=== PATIENT | male | born 1970 | race Caucasian/White ===

== ENCOUNTER 2019-05-02 06:01 | Inpatient (IN) ==
--- NOTE | 2019-04-10 10:31 | Anesthesiology Consultation ---
Date of Service April 10, 2019 Assessment & Plan (1) Encounter for pre-operative examination: -No previous anesthesia/intubation records. Chart Review Chart Review: Acceptable Risk for Surgery and Patient seen in Pre Admission Testing Consults Requested none Teaching & Discussion Pre-Anesthesia Teaching/Discussion Notes: Instructed NPO after midnight before surgery, except medications with 15 cc of water. Medication instructions provided according to the PAT guidelines. History Surgery Operation Date: 05/02/19 07:30 Proposed Procedures p Robotic Assisted Laparoscopic Prostatectomy (Retropubic), Possible Open, Possible Pelvic Lymph Node Dissection, Possible Suprapubic Tube Placement - Edison Willson MD Height/Weight Height: 5 ft 8 in Weight: 79.4 kg Allergies Allergy/AdvReac Type Severity Reaction Status Date / Time No Known Allergies Allergy Verified 04/04/19 11:15 Medications Home Medications Medication Instructions Recorded Confirmed Last Taken uorgbytb-ney-ypqzl-vit K-lycop 1 tab PO DAILY 04/04/19 04/04/19 Unknown [Men's Multivitamin] omega 8-nqg-fbe-fish oil [Fish Oil] 1 cap PO DAILY 04/04/19 04/04/19 Unknown Past Medical History Medical History Cancer PROSTATE CANCER (NEW DX) Deviated septum GERD (gastroesophageal reflux disease) Hyperlipidemia BORDERLINE ELEVATION Exercise / Class Metabolic Activity II 4-5 Yardwork/Stairs/Walk up hill (Yardwork, class 1 owner operator, Able to climb FOS. Denies CP or SOB. ) Past Family History Family History Grandmother (Maternal) Family history of diabetes mellitus Past Surgical History Surgical History Family history of reaction to anesthesia MOTHER-PONV H/O eye surgery RT/LEFT EYE SURGERY (LENS INSERTED) H/O prostate biopsy History of tooth extraction Ina Teeth Past Anesthesia History No Hx of Anesthesia Complications and No Family Hx of Anesthesia Complications History of PONV No Hx of PONV Social History Smoking Status: Never smoker Do You Dip or Chew Tobacco: No Hx Alcohol Use: Yes Alcohol type: beer alcohol intake frequency: a few times a month Hx Substance Use: No substance use type: does not use Review of Systems Patient denies chest pain, shortness of breath, dyspnea on exertion, reflux, cough, wheezing, palpitations. +Joint Pain (lower back occasionally) Physical Exam Vital Signs BP: 121/83 P: 66 R: 16 T: 98.3 SPO2: 97% on RA ENMT Thyromental Distance: > or= 3.5 Finger Breadths (3.5) Mallampati Class: I Neck normal visual inspection, trachea midline and + facial hair (Advised); neck extension not limited Respiratory normal respiratory effort Auscultation: lungs clear to auscultation bilaterally Cardiovascular Rate/Rhythm: regular rate and regular rhythm Heart Sounds: no murmur Vessels: no carotid bruit Neurologic moves all extremities Psychiatric Orientation: alert and oriented x 3 Testing Laboratory Results 04/10/19 11:00 04/10/19 11:00 04/10/19 04/10/19 11:00 11:00 Urine Color Yellow Urine Appearance Clear Urine pH 5.0 Ur Specific [place] 1.017 Urine Protein Negative Urine Glucose (UA) Negative Urine Ketones Negative Urine Nitrite Negative Ur Leukocyte Esterase Negative Blood Type A Positive Antibody Screen NEGATIVE 04/10/19 11:00 Urine Culture - Final Urine,Clean Catch No growth - less than 1,000 colonies/mL. Electrocardiogram Date: 04/10/19 Findings: + SB @ (58) Chest X-Ray Date: 04/10/19 Findings: + NAD FINDINGS: The bones soft tissues and hemidiaphragms are normal. The cardiomediastinal silhouette is normal. The lungs are clear. The pulmonary vasculature is normal. IMPRESSION: Negative chest.
--- NOTE | 2019-04-10 10:33 | PAT Medication Instructions ---
Medication Instructions Date of Service April 10, 2019 Home Medications uobwxtci-fsn-wahki-vit K-lycop [Men's Multivitamin] 1 tab PO DAILY omega 3-ocw-ofr-fish oil [Fish Oil] 1 cap PO DAILY STOP taking 2 weeks before surgery omega 5-hhg-aqd-fish oil [Fish Oil] 1 cap PO DAILY DO NOT take the morning of surgery xkcmmqnt-big-mlxgs-vit K-lycop [Men's Multivitamin] 1 tab PO DAILY Take morning of surgery NOTHING TO EAT OR DRINK AFTER MIDNIGHT: Other Notes If you have any questions please call us at [phone] or [phone] or [phone] or [phone]
--- NOTE | 2019-04-10 11:41 | XRay Report ---
XR chest Pre-admission PA/Lat CLINICAL HISTORY: pat preoperative evaluation COMPARISON STUDY: No previous studies for comparison. FINDINGS: The bones soft tissues and hemidiaphragms are normal. The cardiomediastinal silhouette is n ormal. The lungs are clear. The pulmonary vasculature is normal. IMPRESSION: Negative chest. The above report was generated using voice recognition software. It may contain grammatical, syntax or spelling errors. Electronically signed by: Bogdan Bennett M.D. 04/10/2019 11:39 AM
[2019-04-10 11:44] LABS: Basophils # (auto) 0.03 K/uL (0-0.2); Basophils % (auto) 0.4 %; Eosinophils # (auto) 0.25 K/uL (0-0.5); Eosinophils % (auto) 3.5 %; Hematocrit (blood only) 48.1 % (42-52); Hemoglobin 16.8 g/dL (14.0-18.0); Immature Granulocytes # (auto) 0.01 K/uL (0.00-0.02); Immature Granulocytes % (auto) 0.1 %; Lymphocytes # (auto) 2.25 K/uL (1.2-3.4); Lymphocytes % (auto) 31.3 %; Mean Corpuscular Hgb Conc 34.9 g/dL (32-36); Mean Corpuscular Volume 88.4 fL (80-100); Mean Platelet Volume 11.1 fL (7.4-10.4); Neutrophils # (auto) 4.15 K/uL (1.4-6.5); Neutrophils % (auto) 57.7 %; Platelet Count 165 K/uL (130-400); RDW Coefficient of Variation 12.5 % (11.5-14.5); RDW Standard Deviation 39.9 fL (36.4-46.3); Red Blood Count 5.44 M/uL (4.7-6.1); White Blood Count 7.19 K/uL (4.8-10.8)
[2019-04-10 11:49] LABS: Appearance Urine Clear (Clear); Bilirubin Urine Negative (Negative); Blood Urine Negative (Negative); Color Urine Yellow; Glucose Urine UA Negative (Negative); Ketones Urine Negative (Negative); Leukocyte Esterase Urine Negative (Negative); Nitrite Urine Negative (Negative); Protein Urine Negative (Negative); Specific Gravity Urine 1.017 (1.000-1.030); Urobilinogen Urine Negative (Negative)
[2019-04-10 13:44] LABS: BUN Creatinine Ratio 12.5 (10-20); Calcium 8.9 mg/dl (8.5-10.1); Creatinine Clr Calc Pharmacy 81.4 ml/min; Est GFR (African American) 95.5; Est GFR (Non-African American) 82.4; Potassium 4.9 mmol/L (3.5-5.1)
[~2019-05-02 06:01] MED LIST: ACETAMINOPHEN 1000 MG/100 ML IV IV SCH; CEFAZOLIN 2000MG 2,000 MG/15 ML SYR IV SCH; HEPARIN SOD (PORCINE) 5,000 UNITS/ML VIAL SQ SCH; LR 15ML/HR IV SCH
--- OUTSIDE RECORDS SUMMARY | 2019-05-02 06:06 | External Medical Summary | Continuity of Care Document ---
:1970 Author Name Yehuda Roberts, Provider Address Unavailable Unavailable , Care Team Providers Name Role Phone Edison Willson M.D., I. Unavailable [email or web address] Unavailable Unavailable Unavailable Unavailable Unavailable Problems Prostate cancer (185) (C61) Elevated PSA (790.93) (R97.20) Allergies and Adverse Reactions No Known Drug Allergies (Allergy) Medications Aspirin 81 MG TABS Refills: 0 Fish Oil CAPS Refills: 0 Procedures History of Eye Surgery Status: Completed Immunizations Immunizations not documented Family History Mother No pertinent family history (V49.89) (Z78.9) Status: Active Father No pertinent family history (V49.89) (Z78.9) Status: Active Grandmother Family history of diabetes mellitus (V18.0) (Z83.3) Status: Active Grandfather Family history of cardiac disorder (V17.49) (Z82.49) Status: Active uncle Family history of lung cancer (V16.1) (Z80.1) Status: Active aunt Family history of ovarian cancer (V16.41) (Z80.41) Status: A ctive Family history of malignant neoplasm of breast (V16.3) (Z80. 3) Status: Active Social History - Smoking Status Never smoker Plan of Treatment Planned Encounters Appointment; Edison Willson M.D. Start: 03-Jun-2019 11:20 R equest Planned Observations Planned Goals not documented Results No Known Results Results not documented Encounters Appointment; Edison Willson M.D. 10-Apr-2019 9:10 Encounter Diagnosis: Problem not documented Appointment; Edison Willson M.D. 04-Feb-2019 10:45 Encounter Diagnosis: Problem not documented Appointment; Edison Willson M.D. 02-Jan-2019 13:20 Encounter Diagnosis: Problem not documented Appointment; Edison Willson M.D. 19-Dec-2018 9:00 Encounter Diagnosis: Problem not documented Appointment; Urology, US probe only 19-Dec-2018 9:00 Encounter Diagnosis: Problem not documented Appointment; Urology, Room 8 19-Dec-2018 8:50 Encounter Diagnosis: Problem not documented Appointment; Edison Willson M.D. 04-Dec-2018 9:40 Encounter Diagnosis: Problem not documented Appointment; Edison Willson M.D. 10-Oct-2018 16:30 Encounter Diagnosis: Problem not documented Appointment; Edison Willson M.D. 03-Jun-2019 11:20 Encounter Diagnosis: Problem not documented
[2019-05-02] MEDS ORDERED: MIDAZOLAM HCL 1 MG/ML 2ML VIAL ONE (06:23)
[2019-05-02] MEDS ORDERED: SUCCINYLCHOLINE CHLORIDE 20 MG/ML 10 ML VIAL ONE (06:23)
[2019-05-02] MEDS ORDERED: PHENYLEPHRINE HCL 10 MG/ML VIAL ONE (06:23)
[2019-05-02] MEDS ORDERED: DEXAMETHASONE SOD INJ 4 MG/ML VIAL ONE ×2 (06:23→08:06)
[2019-05-02] MEDS ORDERED: ePHEDrine sulfate 50 MG/ML AMP ONE (06:23)
[2019-05-02] MEDS ORDERED: GLYCOPYRROLATE 0.2 MG/ML VIAL ONE (06:23)
[2019-05-02] MEDS ORDERED: PROPOFOL IV EMULSION 10 MG/ML 20 ML VIAL IV ONE (06:23)
[2019-05-02] MEDS ORDERED: fentaNYL citrate 100 MCG/2 ML VIAL ONE (06:23)
[2019-05-02] MEDS ORDERED: LIDOCAINE HCL 2% 2 ML VIAL/AMP(20MG/ML) INFIL ONE (06:23)
[2019-05-02] MEDS ORDERED: NEOSTIGMINE METHYLSULFATE 5 MG/5 ML SYR ONE (06:23)
[2019-05-02] MEDS ORDERED: ONDANSETRON INJ 2 MG/ML 2 ML VIAL ONE ×2 (06:23→10:53)
[2019-05-02] MEDS ORDERED: SODIUM CHLORIDE 0.9% 250 ML IV PRN (06:26)
[2019-05-02] MEDS ORDERED: ONDANSETRON INJ 2 MG/ML 2 ML VIAL IV PRN ×3 (06:31→19:18)
[2019-05-02] MEDS ORDERED: ATROPINE SULFATE 0.1 MG/ML 10ML SYR IV PRN (06:31)
[2019-05-02] MEDS ORDERED: HYDROmorphone INJ 1 MG/ML SYRINGE IV PRN ×3 (06:31→13:08)
[2019-05-02] MEDS ORDERED: ePHEDrine sulfate 50 MG/ML AMP IV PRN (06:31)
[2019-05-02] MEDS ORDERED: HEPARIN SOD 5,000 UNIT/0.5 ML VIAL ONE (06:44)
[2019-05-02] MEDS ORDERED: BUPIVACAINE 0.5 % 5 MG/1 ML MPF 30ML VIAL ONE (06:56)
--- NOTE | 2019-05-02 07:02 | History & Physical Bridge Note ---
Date of Service May 02, 2019 History & Physical Bridge Note I have examined the patient, reviewed the History & Physical and in the interval since the performance of the History & Physical I have noted the following changes of clinical significance: no changes noted
[2019-05-02] MEDS ORDERED: HYDROmorphone INJ 2 MG/ML SYR/VIAL ONE (08:01)
[2019-05-02] MEDS ORDERED: ROCURONIUM BROMIDE 10 MG/ML 5 ML VIAL ONE (08:05)
[2019-05-02] MEDS ORDERED: raNITIdine HCl 25 MG/ML VIAL IV ONE (08:05)
[2019-05-02] MEDS ORDERED: METOCLOPRAMIDE HCL INJ 5 MG/ML 2 ML VIAL ONE (08:05)
[2019-05-02] MEDS ORDERED: CEFAZOLIN 2000MG 2,000 MG/15 ML SYR IV ONE (08:30)
[2019-05-02] MEDS ORDERED: PHENYLEPHRINE 100MCG/ML 5ML SYR ONE (09:23)
[2019-05-02] MEDS ORDERED: ePHEDrine sulfate 50 MG/ML SYR ONE (09:23)
[2019-05-02] MEDS ORDERED: FLOSEAL HEMOSTATIC MATRIX 10ML TOP ONE (09:58)
--- NOTE | 2019-05-02 11:18 | Operative Report ---
Post Operative Report Pre & Post Diagnosis Operation Date: 05/02/19 07:30 Pre-Op Diagnosis: Prostate Cancer Post-Op Diagnosis: Prostate Cancer Procedure Operation Date: 05/02/19 07:30 Actual Procedures p Laparoscopic Robotic Assisted Radical Retropubic Prostatectomy, Suprapubic Tube Placement(Not Applicable) - Edison Willson MD Surgeon Edison Willson MD Photographer Finish LIBRA Rizzo Estimated Blood Loss 150 Findings Consistent with Post-Op Diagnosis Specimens Prostate + Svs Description of Procedure RALRP, BNS I attest to the content of the Intraoperative Record and any orders documented therein. Any exceptions are noted below.
[2019-05-02 12:02] LABS: Basophils # (auto) 0.01 K/uL (0-0.2); Basophils % (auto) 0.1 %; Hematocrit (blood only) 43.9 % (42-52); Hemoglobin 15.4 g/dL (14.0-18.0); Immature Granulocytes # (auto) 0.02 K/uL (0.00-0.02); Immature Granulocytes % (auto) 0.2 %; Lymphocytes # (auto) 0.91 K/uL (1.2-3.4); Mean Corpuscular Volume 86.8 fL (80-100); Mean Platelet Volume 10.7 fL (7.4-10.4); Monocytes # (auto) 0.12 K/uL (0.11-0.59); Monocytes % (auto) 1.1 %; Neutrophils # (auto) 10.33 K/uL (1.4-6.5); Neutrophils % (auto) 90.6 %; Platelet Count 144 K/uL (130-400); RDW Coefficient of Variation 12.6 % (11.5-14.5); Red Blood Count 5.06 M/uL (4.7-6.1); White Blood Count 11.39 K/uL (4.8-10.8)
[2019-05-02 12:03] LABS: Mean Corpuscular Hgb Conc 35.1 g/dL (32-36)
[2019-05-02] MEDS: fentaNYL citrate 100 MCG/2 ML VIAL IV PRN ×2 (12:04→12:10)
--- NOTE | 2019-05-02 12:15 | Anesthesiology Progress Note ---
Date of Service May 02, 2019 Anesthesia Post Procedure Vital Signs Vital Signs: Temp Pulse Resp BP Pulse Ox 05/02/19 12:10 36.5 C 68 13 118/77 87 L 05/02/19 12:00 36.5 C 63 13 110/82 99 05/02/19 11:50 36.5 C 77 11 L 115/73 99 05/02/19 11:40 36.5 C 71 13 120/75 99 05/02/19 11:30 36.5 C 77 13 130/82 98 05/02/19 06:18 36.9 C 66 18 140/87 96 Pain Intensity Abdomen: Pain Intensity: 5 Transfer of Care Handoff Completed per policy Notes Mental Status: alert / awake / arousable and participated in evaluation Patient Amnestic to Procedure: Yes Nausea / Vomiting: adequately controlled Pain: adequately controlled Airway Patency, RR, SpO2: stable & adequate BP & HR: stable & adequate Hydration State: stable & adequate Anesthetic Complications: no major complications apparent and Pt Satisfied with anesthetic care
[2019-05-02 12:18] LABS: Calcium 8.3 mg/dl (8.5-10.1); Creatinine Clr Calc Pharmacy 74.3 ml/min; Est GFR (African American) 85.5; Est GFR (Non-African American) 73.8; Potassium 3.9 mmol/L (3.5-5.1)
[2019-05-02] MEDS ORDERED: OXYCODONE HCL IR 5 MG TAB (IMMEDIATE RELEASE) PO PRN (13:08)
[2019-05-02] MEDS ORDERED: OXYCODONE/ACETAMINOPHEN 5mg/325mg TAB PO PRN (13:08)
[2019-05-02] MEDS: ACETAMINOPHEN 1,000 MG/100 ML VIAL IV SCH ×2 (14:35→22:13)
[2019-05-02 14:40] LABS: INR 1.1 (0.9-1.1); Partial Thromboplastin Ratio 0.9; Partial Thromboplastin Time 23.8 Seconds (21.0-31.0); Prothrombin Time 10.9 Seconds (9.0-12.0)
[2019-05-02] MEDS ORDERED: PHENAZOPYRIDINE HCL 200 MG TAB PO PRN (15:38)
--- NOTE | 2019-05-02 15:44 | Urology Progress Note ---
Date of Service May 02, 2019 Assessment & Plan (1) Cancer of prostate, recur risk not determined whether low, med or high: 48yo M POD #0 s/p RALP with suprapubic catheter placement Progressing as expected. Encouraged to ambulate and use IS. Dr. Willsno at bedside to also evaluate patient this AM. Operative course and expected clinical course reviewed. All questions answered. Anticipate home tomorrow if continues to progress as expected. Subjective 48yo M POD #0 s/p RALP with suprapubic tube placement by Dr. Willson A&Ox3 3 family members at bedside. Denies n/v. Tolerating clears. Has not been out of bed yet. Banuelos and Sp tube draining yellow with intermittent, small clots, draining well. Incisions c/d/i Labs reviewed -stable. Results & Data Vital Signs (Past 12 Hours) Vital Signs Temp Pulse Resp BP Pulse Ox 05/02/19 14:37 36.4 C L 81 18 103/64 94 05/02/19 13:38 36.3 C L 80 18 109/77 96 05/02/19 13:18 73 19 109/69 97 05/02/19 12:50 36.6 C 77 18 119/72 97 05/02/19 12:40 36.4 C L 70 15 113/74 97 05/02/19 12:30 36.4 C L 69 12 111/70 97 05/02/19 12:20 36.4 C L 59 L 19 106/71 98 05/02/19 12:10 36.5 C 68 13 118/77 87 L 05/02/19 12:00 36.5 C 63 13 110/82 99 05/02/19 11:50 36.5 C 77 11 L 115/73 99 05/02/19 11:40 36.5 C 71 13 120/75 99 05/02/19 11:30 36.5 C 77 13 130/82 98 05/02/19 06:18 36.9 C 66 18 140/87 96
[2019-05-02] MEDS: LACTATED RINGER'S 1,000 ML IV SCH (16:55)
--- NOTE | 2019-05-02 17:51 | Operative Report ---
DATE OF OPERATION: 05/02/2019 PREOPERATIVE DIAGNOSES: Clinical T1c, [place] 3+3 adenocarcinoma of the prostate with a pretreatment PSA of 4.5. POSTOPERATIVE DIAGNOSES: Clinical T1c, [place] 3+3 adenocarcinoma of the prostate with a pretreatment PSA of 4.5. PROCEDURE: Robot-assisted laparoscopic radical retropubic prostatectomy with bilateral nerve sparing dissection, suprapubic tube placement. SURGEON: Dr. dEison Willson. MATH TEACHER: LIBRA Arroyo. Stock Counter was present throughout the case for retraction, passage of instruments, backing of tissue specimen, suction, port and instrument placements and general patient safety. ANESTHESIA: General anesthesia with endotracheal intubation plus local at port sites. ESTIMATED BLOOD LOSS: 150 mL. DRAINS LEFT IN PLACE: Include an 18-Syrian silicone Banuelos catheter to gravity drainage via meatus with 10 mL of sterile water in balloon, 16-Syrian suprapubic catheter with 10 mL of sterile water in the balloon and a #10 RIRI drain in the left lower quadrant. INTRAVENOUS FLUIDS: Approximately 1400 mL of crystalloid. SPECIMENS SENT TO PATHOLOGY: Prostate plus seminal vesicles, periprostatic fat. FINDINGS: Watertight anastomosis with excellent nerve sparing dissection bilaterally and hemostasis. BRIEF HISTORY: The patient is a pleasant 48-year-old male who has been found to have a low volume [place] 3+3 adenocarcinoma of the prostate on prostate biopsy for an elevated PSA. Due to his youth and excellent health, he has decided upon a robotic prostatectomy to manage his disease. Please see H and P for further details. He is here today for surgical intervention and extirpation of his prostate. SCDs were used for DVT prophylaxis and subcutaneous heparin provided as well. Intravenous Tylenol provided preoperatively for additional analgesia. DESCRIPTION OF PROCEDURE: The patient was properly identified and brought to the operative suite after identification and appropriate consent on the chart. General anesthesia with endotracheal intubation was initiated and the patient was prepped and draped in standard fashion for this procedure. manager multimedia-out procedure was followed. A 12 mm incision was made transversely superior to the umbilicus and abdomen was entered under direct visualization using a 0 degree laparoscope and a 12 mm visual obturator port. No evidence of any injury to the intra-abdominal structures was appreciated throughout the case or port placement. Abdomen was insufflated to 15 mmHg and 2 ports were placed for a 4th arm robotic template including 2 left-sided 7 mm ports, 1 right-sided 7 mm robotic port and a 5 and 12 mm public health training assistant port. The patient was placed in Trendelenburg and robot was brought in and docked. A 0 degree lens was used to drop the bladder down to the level of the pubic bone. The patient was noted to have significant bowel adhesions in the left lower quadrant, which were divided using cold scissors. Some dense tissue, inflamed around the tissue planes of the pelvis was noted. This was felt to be unrelated to the patient's prostate or prostate cancer. Prostate was defatted and the specimen sent for pathologic analysis. Endopelvic fascia was sharply entered on both sides and the dorsal venous complex was skeletonized. A 0 Vicryl suture in a [id number] fashion on a CT1 needle was used to control the dorsal venous complex. After this was complete, a 30-degree down lens was used to visualize the pelvic contents and the bladder neck was placed on traction using the 4th arm. This was skeletonized with excellent anatomy being appreciated. It was divided at the level of an excellent bladder neck aperture. Posterior bladder neck was divided and a miniscule median lobe element was identified and circumscribed. Bladder was dropped in the midline until the vas deferens and seminal vesicles were identified. The patient was noted to have significantly lengthy redundant seminal vesicles, but these were able to be dissected free in their entirely. Cold scissors were used to drop the rectum up to the level of the apex of the prostate gland. Bovie cautery was used to divide the remaining bladder attachments on the lateral aspects of the prostate and the prostatic pedicles were skeletonized. These were controlled with a single cold Weck clip. Cold scissors were then used to complete an excellent nerve sparing operation on both sides with the veil of Aphrodite being preserved as well and noted to have both vascular and nerve elements. This dissection was carried out to the level of the apex of the prostate and then attention was again turned to the dorsal venous complex. This was divided. Urethra was skeletonized. No remaining neurovascular elements were appreciated lateral to the urethra on either side. Excellent urethral length was noted and then urethra was divided using cold scissors. Rectourethralis fibers were divided and the prostate was able to be delivered up into the abdominal cavity where it was placed within an EndoCatch bag for retrieval at the end of the case. Pelvis was filled with saline irrigation and rectum was insufflated under irrigation and noted to be free of any injury. Rectal tube was removed after removal of the intrarectal gas. FloSeal tissue sealant was placed over the prostatic bed for additional hemostasis. A double armed V-Loc suture was used in a running fashion to create a vesicourethral anastomosis. This was noted to be excellent in terms of aperture seeing the bladder neck size and urethral stump. A Banuelos catheter was visualized entering the bladder prior to completion of closure. A 10 mL of sterile water were placed within the balloon. Anastomosis was tested with greater than 120 mL of sterile irrigant and noted to be watertight. A small suprapubic incision was then made and a suprapubic trocar was placed under direct visualization through the incision and into the bladder. A 16-Syrian silicone catheter was placed via the sheath and 10 mL of sterile water placed within the balloon. Both catheters were appreciated to be within the bladder and were able to be irrigated through and through without difficulties, resistance or significant hematuria. The 4th arm was removed and a #10 RIRI drain was brought in via the 4th arm drain clear. This was draped within the confines of the pelvis while avoiding placing it directly over the anastomosis. Robotic instruments were removed and robot was dedocked. Camera was brought in via the public health training assistant 12 mm port and string to the EndoCatch bag was brought in through the supraumbilical port. Ports were removed and excess carbon dioxide gas was removed from the abdomen. Supraumbilical port was enlarged sufficiently to allow for easy passage of the specimen bag and prostate was handed off for pathologic analysis. Supraumbilical incision was closed using 0 Vicryl on a UR-5 needle. A 2-0 silk were used to secure the suprapubic tube and a #[address]. A 4-0 Monocryl were used to the level of the skin followed by Dermabond dressings. Anesthesia was reversed. The patient was transferred to Recovery Room in stable condition. FOLLOWUP CARE: The patient will be admitted to the floor for standard postoperative management. I attest to the content of the Intraoperative Record and any orders documented therein. Any exception s are noted below.
[2019-05-02] MEDS: CEFAZOLIN 2000MG 2,000 MG/15 ML SYR IV SCH (18:54)
[2019-05-02] MEDS ORDERED: PROMETHAZINE HCL 25 MG TAB PO PRN (19:21)
[2019-05-02] MEDS: HEPARIN SOD 5,000 UNIT/0.5 ML VIAL SQ SCH (20:30)
[2019-05-02] MEDS: OXYBUTYNIN CHLORIDE 5 MG TAB PO PRN (21:42)
[2019-05-03] MEDS: LACTATED RINGER'S 1,000 ML IV SCH ×2 (00:22→08:56)
[2019-05-03] MEDS: CEFAZOLIN 2000MG 2,000 MG/15 ML SYR IV SCH (02:08)
[2019-05-03] MEDS: ACETAMINOPHEN 1,000 MG/100 ML VIAL IV SCH (06:14)
[2019-05-03 07:17] VITALS: PULSE 69
[2019-05-03 08:11] LABS: Hematocrit (blood only) 40.9 % (42-52); Immature Granulocytes # (auto) 0.04 K/uL (0.00-0.02); Immature Granulocytes % (auto) 0.3 %; Lymphocytes # (auto) 1.83 K/uL (1.2-3.4); Lymphocytes % (auto) 15.4 %; Mean Corpuscular Hgb Conc 34.2 g/dL (32-36); Mean Corpuscular Volume 89.3 fL (80-100); Mean Platelet Volume 10.8 fL (7.4-10.4); Monocytes # (auto) 1.15 K/uL (0.11-0.59); Monocytes % (auto) 9.7 %; Neutrophils # (auto) 8.86 K/uL (1.4-6.5); Neutrophils % (auto) 74.6 %; Platelet Count 143 K/uL (130-400); RDW Coefficient of Variation 12.9 % (11.5-14.5); RDW Standard Deviation 41.8 fL (36.4-46.3); Red Blood Count 4.58 M/uL (4.7-6.1); White Blood Count 11.88 K/uL (4.8-10.8)
--- NOTE | 2019-05-03 08:26 | Urology Progress Note ---
Date of Service May 03, 2019 Assessment & Plan (1) Cancer of prostate, recur risk not determined whether low, med or high: A/P 48 yo male POD#1 s/p RALRP, SPT. Doing well. Expected course reviewed with patient and . DC armando, leave SPT in place. F/u AM labs. Advance diet and activity. If does well, DC RIRI and DC home in PM. Patient and vocalize understanding of treatment plan. Subjective 48 yo male POD#1 s/p RALRP, SPT placement. He is OOBTC, in room, ambulation in room yesterday. Episode of emesis in PM, resolved after PO clears. He reports he feels improved today, has abdominal pain, appropriate. Some blood around f oley, no other c/o. AM labs pending, last night's labs wnl. No other c/o. Review of Systems Constitutional: no fever and no chills Eyes: no diplopia Ear, Nose, Mouth, Throat: no ear pain and no hearing loss Respiratory: no cough and no dyspnea Cardiovascular: no chest pain Gastrointestinal: + abdominal pain; no coffee ground emesis Genitourinary: + hematuria Musculoskeletal: no neck pain Integumentary: no acne and no boil Neurologic: no paralysis and no numbness Psychiatric: no hopelessness Endocrine: no fatigue Hematologic / Lymphatic: no easy bleeding and no coagulopathy Physical Exam Constitutional: WD/WN, vitals as above Eyes: eyes not dysmorphic ENMT: Ears: no hearing impairment and no external ear abnormality Neck: trachea midline; no anterior neck swelling Respiratory: no respiratory distress and does not use accessory muscles Cardiovascular: Vessels: radial pulses present Gastrointestinal (Abdomen): Inspection/Auscultation: abdomen not distended Percussion/Palpation: abdomen soft; abdomen nontender inc c/d/i Musculoskeletal: Head/Neck/Chest: normocephalic and neck supple Skin: normal turgor Neurologic: awake; not obtunded Psychiatric: Orientation: oriented x 3 Lymphatic: no lymphadenopathy Results & Data Vital Signs (Past 12 Hours) Vital Signs Temp Pulse Resp BP Pulse Ox 05/03/19 07:17 36.6 C 69 20 106/67 96 05/03/19 03:58 36.7 C 73 18 96/62 L 94 05/02/19 23:16 36.7 C 79 18 102/62 94 Laboratory Results Laboratory Results - last 48 hr 05/02/19 05/02/19 05/02/19 06:16 11:52 11:52 WBC 11.39 H RBC 5.06 Hgb 15.4 Hct 43.9 MCV 86.8 MCH 30.4 MCHC 35.1 RDW Std Deviation 40.0 RDW Coeff of Mariusz 12.6 Plt Count 144 MPV 10.7 H Immature Gran % (Auto) 0.2 Neut % (Auto) 90.6 Lymph % (Auto) 8.0 Sibley % (Auto) 1.1 Eos % (Auto) 0.0 Baso % (Auto) 0.1 Immature Gran # (Auto) 0.02 Neut # (Auto) 10.33 H Lymph # (Auto) 0.91 L Sibley # (Auto) 0.12 Eos # (Auto) 0.00 Baso # (Auto) 0.01 PT INR APTT PTT Ratio Sodium 144 Potassium 3.9 Chloride 110 H Carbon Dioxide 26 Anion Gap 8.0 BUN 13 Creatinine 1.15 Est Cr Clr Drug Dosing 74.3 Est GFR ( Amer) 85.5 Est GFR (Non-Af Amer) 73.8 BUN/Creatinine Ratio 11.0 Glucose 153 H Calcium 8.3 L Blood Type A Positive Antibody Screen NEGATIVE Crossmatch See Detail 05/02/19 05/03/19 14:21 07:53 WBC 11.88 H RBC 4.58 L Hgb 14.0 Hct 40.9 L MCV 89.3 MCH 30.6 MCHC 34.2 RDW Std Deviation 41.8 RDW Coeff of Mariusz 12.9 Plt Count 143 MPV 10.8 H Immature Gran % (Auto) 0.3 Neut % (Auto) 74.6 Lymph % (Auto) 15.4 [place]y % (Auto) 9.7 Eos % (Auto) 0.0 Baso % (Auto) 0.0 Immature Gran # (Auto) 0.04 H Neut # (Auto) 8.86 H Lymph # (Auto) 1.83 Sibley # (Auto) 1.15 H Eos # (Auto) 0.00 Baso # (Auto) 0.00 PT 10.9 INR 1.1 APTT 23.8 PTT Ratio 0.9 Sodium Potassium Chloride Carbon Dioxide Anion Gap BUN Creatinine Est Cr Clr Drug Dosing Est GFR ( Amer) Est GFR (Non-Af Amer) BUN/Creatinine Ratio Glucose Calcium Blood Type Antibody Screen Crossmatch
[2019-05-03 08:37] LABS: BUN Creatinine Ratio 11.5 (10-20); Calcium 8.8 mg/dl (8.5-10.1); Creatinine Clr Calc Pharmacy 79.2 ml/min; Est GFR (African American) 92.3; Est GFR (Non-African American) 79.6
[2019-05-03] MEDS ORDERED: OMEGA-3 (PURIFIED FISH OIL) 1 GM CAP PO SCH (09:00)
[2019-05-03] MEDS ORDERED: MULTIVITAMIN TAB PO SCH (09:00)
[2019-05-03] MEDS: HEPARIN SOD 5,000 UNIT/0.5 ML VIAL SQ SCH (09:48)
[2019-05-03] MEDS: OXYBUTYNIN CHLORIDE 5 MG TAB PO PRN (11:50)
[2019-05-03 12:10] VITALS: BP 103/78; TEMP 98.2; O2SAT 97
--- NOTE | 2019-05-22 12:31 | Discharge Summary ---
Date of Service May 22, 2019 Admission HPI Per Admitting Provider 48 yo male with prostate cancer for robotic prostatectomy. See H&P for further details. Admission Exam (Per Admitting) Constitutional WD/WN, vitals as above Eyes eyes not dysmorphic ENMT Ears: no hearing impairment and no external ear abnormality Neck trachea midline; no anterior neck swelling Respiratory no respiratory distress and does not use accessory muscles Cardiovascular Vessels: radial pulses present Gastrointestinal (Abdomen) Inspection/Auscultation: abdomen not distended Percussion/Palpation: abdomen soft; abdomen nontender Musculoskeletal Head/Neck/Chest: normocephalic and neck supple Skin normal turgor Neurologic awake; not obtunded Psychiatric Orientation: oriented x 3 Lymphatic no lymphadenopathy Specialty Data Urology Patient underwent uncomplicated robotic prostatectomy. See OP note for further details. POD#1 patient was ambulatory, tolerating regular diet, comfortable on oral meds. See progress notes for further details. Discharge Data Procedures Performed Operation Date: 05/02/19 07:30 Actual Procedures p Laparoscopic Robotic Assisted Radical Retropubic Prostatectomy, Suprapubic Tube Placement(Not Applicable) - Edison Willson MD Hospital Course (1) Cancer of prostate, recur risk not determined whether low, med or high: A/P 48 yo male POD#1 s/p RALRP, SPT. Doing well. Expected course reviewed with patient and . DC tr, leave SPT in place. F/u AM labs. Advance diet and activity. If does well, DC RIRI and DC home in PM. Patient and vocalize understanding of treatment plan. Discharge Instructions See DC instructions and meds for further details.
== END 2019-05-03 13:58 | disposition home or self-care (01) | DRG 708 ==
LOC: ASU 06:01 → 3W 11:29